=== PATIENT | female | born 1980 | race Caucasian/White ===

== ENCOUNTER 2023-05-10 16:50 | Inpatient (IN) | payer OTHER ==
[2023-05-10 18:15] LABS: PH,URINE 6.5 (5.0-8.0); URINE APPEARANCE CLEAR; URINE BILIRUBIN NEGATIVE (NEGATIVE); URINE COLOR YELLOW; URINE GLUCOSE (UA) NEGATIVE (NEGATIVE); URINE KETONE NEGATIVE (NEGATIVE); URINE LEUK ESTERASE NEGATIVE (NEGATIVE); URINE NITRITE NEGATIVE (NEGATIVE); URINE PROTEIN NEGATIVE (NEGATIVE); URINE UROBILINOGEN 0.2 mg/dL (0.2-1.0)
[2023-05-10 18:55] LABS: RETICULOCYTES 3.11 % (0.5-1.5)
[2023-05-10 19:22] LABS: URIC ACID 4.8 mg/dL (2.6-7.2)
[2023-05-10 21:30] LABS: BASO % 0.6 % (0-2.0); EOS % 1.1 % (0-4.5); HEMOGLOBIN 11.6 GM/dL (10.7-15.3); LYMPH % 29.9 % (8-40); MCH 29.7 pg (25.7-33.7); MCHC 36.1 g/dl (32.0-36.0); MEAN CELL VOLUME 82.2 fl (80-96); MEAN PLT VOLUME 7.1 fl (7.5-11.1); MONO % 6.6 % (3.8-10.2); NEUT % 61.8 % (42.8-82.8); PLATELET COUNT 253 10^3/uL (134-434); RDW 16.7 % (11.6-15.6); WHITE BLOOD COUNT 8.5 K/mm3 (4.0-10.0)
[2023-05-10 21:37] LABS: INR 1.12 (0.83-1.09)
[2023-05-10 21:40] LABS: ACTIVATED PTT 28.1 SECONDS (25.2-36.5)
[2023-05-10 21:47] LABS: POTASSIUM 3.9 mmol/L (3.5-5.1)
[2023-05-10 21:49] LABS: CALCIUM 8.4 mg/dL (8.5-10.1)
[2023-05-10 21:53] LABS: CREATININE 0.6 mg/dL (0.55-1.3)
[2023-05-10 23:30] VITALS: BMI 32.2
[2023-05-10] MEDS: INSULIN (LEVEMIR) 100 UNITS/ML UNITS SQ SCH (23:55)
[2023-05-11] MEDS: DEXTROSE 5%-LACTATED RINGERS 1,000 ML IV SCH (05:45)
[2023-05-11] MEDS ORDERED: OXYTOCIN 30 UNITS in 0.9% NS 30 UNIT/500 ML INFUS.BAG IVPB ONE ×2 (06:38→15:59)
[2023-05-11] MEDS: OXYTOCIN 30 UNITS in 0.9% NS 30 UNIT/500 ML INFUS.BAG IVPB SCH ×2 (06:40→07:15)
[2023-05-11] MEDS ORDERED: INSULIN (NOVOLOG) ASPART 100 UNITS/ML 10ML VIAL SQ SCH ×2 (07:00)
[2023-05-11 08:58] LABS: URINE TOTAL VOLUME 6000 mL
[2023-05-11] MEDS ORDERED: INSULIN (LEVEMIR) 100 UNITS/ML UNITS SQ SCH (09:00)
[2023-05-11] MEDS ORDERED: INSULIN ASPART SLIDING SCALE (NOVOLOG) 1 VIAL SQ PRN (11:06)
[2023-05-11] MEDS ORDERED: morphine SULFATE/PF 1 MG/2 ML (2cc Syringe - QUVA) ONE (20:11)
[2023-05-11] MEDS ORDERED: PROPOFOL 20 ML ONE (20:13)
[2023-05-11] MEDS ORDERED: SUCCINYLCHOLINE CHLORIDE 200 MG/10 ML SYRINGE ONE (20:13)
[2023-05-11] MEDS ORDERED: MAGNESIUM SULF 50% (8.12 MEQ/2 ML-1 GM VIAL) ONE (21:20)
[2023-05-11] MEDS ORDERED: MIDAZOLAM HCL 2 MG/2 ML SINGLE DOSE VIAL ONE (21:29)
[2023-05-11 21:51] LABS: CORD BASE EXCESS -5.7 mmol/L (0-2); CORD HCO3 18.8 mmHg (20-29); CORD PCO2 34.2 mmHg (30-78); CORD PCO2 40.7 mmHg (30-78); CORD pH 7.358 (7.14-7.44)
[2023-05-11] MEDS ORDERED: ACETAMINOPHEN 325 MG TABLET (FP) PO PRN ×2 (22:27→22:29)
[2023-05-11] MEDS ORDERED: ONDANSETRON 4 MG/2 ML VIAL IVPUSH PRN (22:27)
[2023-05-11] MEDS ORDERED: METHYLERGONOVINE MALEATE 0.2 MG/1 ML AMP IM PRN (22:29)
[2023-05-11] MEDS ORDERED: WITCH HAZEL 50% (TUCKS) 40 PAD/JAR PAD TP PRN (22:29)
[2023-05-12] MEDS ORDERED: LABETALOL HCL 200 MG TABLET (FP) ONE (00:22)
[2023-05-12] MEDS: LABETALOL HCL 200 MG TABLET (FP) PO SCH ×2 (00:25→22:35)
[2023-05-12] MEDS ORDERED: OXYTOCIN 20 UNITS in 0.9% NS 20 UNIT/1,000 ML INFUS.BAG IV ONE (01:28)
[2023-05-12] MEDS: OXYTOCIN 20 UNITS in 0.9% NS 20 UNIT/1,000 ML INFUS.BAG IV SCH (01:30)
[2023-05-12] MEDS: INSULIN (LEVEMIR) 100 UNITS/ML UNITS SQ SCH (04:12)
[2023-05-12 08:12] LABS: BASO % 0.6 % (0-2.0); EOS % 0.4 % (0-4.5); HEMATOCRIT 28.7 % (32.4-45.2); HEMOGLOBIN 9.9 GM/dL (10.7-15.3); LYMPH % 22.1 % (8-40); MCH 28.9 pg (25.7-33.7); MCHC 34.4 g/dl (32.0-36.0); MEAN CELL VOLUME 84.1 fl (80-96); MEAN PLT VOLUME 7.1 fl (7.5-11.1); MONO % 7.3 % (3.8-10.2); NEUT % 69.6 % (42.8-82.8); PLATELET COUNT 213 10^3/uL (134-434); RBC 3.41 M/mm3 (3.60-5.2); RDW 16.9 % (11.6-15.6); WHITE BLOOD COUNT 8.4 K/mm3 (4.0-10.0)
[2023-05-12] MEDS: ENOXAPARIN NA (PORCINE) 40 MG/0.4 ML DISP.SYRIN SQ SCH (10:24)
[2023-05-12] MEDS: IBUPROFEN 800 MG/8 ML IJ IVPB PRN (10:24)
[2023-05-12] MEDS: PRENATAL VITAMINS W/ FOLIC ACID TABLET (FP) PO SCH (10:25)
[2023-05-12] MEDS ORDERED: oxyCODONE HCL 5 MG TABLET PO PRN ×2 (10:29)
[2023-05-12] MEDS: SIMETHICONE 80 MG TAB.CHEW (FP) PO PRN (19:54)
[2023-05-12] MEDS: IBUPROFEN 600 MG TABLET (FP) PO PRN (19:54)
[2023-05-12] MEDS ORDERED: BISACODYL 10 MG SUPP.RECT RC PRN (22:29)
[2023-05-14 08:37] LABS: BASO % 0.6 % (0-2.0); EOS % 1.8 % (0-4.5); HEMATOCRIT 26.1 % (32.4-45.2); LYMPH % 30.5 % (8-40); MCHC 34.5 g/dl (32.0-36.0); MEAN CELL VOLUME 84.2 fl (80-96); MEAN PLT VOLUME 6.8 fl (7.5-11.1); MONO % 6.1 % (3.8-10.2); PLATELET COUNT 235 10^3/uL (134-434); RBC 3.09 M/mm3 (3.60-5.2); RDW 16.8 % (11.6-15.6)
[2023-05-14 09:08] VITALS: TEMP 98.3
[2023-05-14 09:48] VITALS: BP 135/77; PULSE 118; RESP 17
== END 2023-05-14 12:40 | disposition home or self-care (01) | DRG 540 ==
LOC: JDEL 16:50 → JLDR 20:30 → UNDOADMOB 20:30 → JLDR 22:30 → OBSVTOIN 22:33 → INTOOBSV 22:33 → JLDR 05-11 23:40 → J3W 05-12 03:11
PROVIDERS: ADMIT Obstetrics & Gynecology; ATTEND Obstetrics & Gynecology
PROC: 10D00Z1 Extraction of Products of Conception, Low, Open Approach (ICD-10-PCS; principal; 2023-05-11)
DX: O32.8XX0 Maternal care for other malpresentation of fetus, not applicable or unspecified (principal); O24.424 Gestational diabetes mellitus in childbirth, insulin controlled; O13.4 Gestational [pregnancy-induced] hypertension without significant proteinuria, complicating childbirth; Z3A.37 37 weeks gestation of pregnancy; Z37.0 Single live birth
CPT/HCPCS: 36415; 36600; 80048; 81003; 82570; 82803; 82962; 82977; 83010; 84156; 84450; 84460; 84550; 85025; 85032; 85045; 85610; 85730; 86780; 86850; 86900; 86901; 88307-TC; G0378